=== PATIENT | female | born 1950 | race American Indian/Alaskan Native ===

== ENCOUNTER 2017-06-28 13:08 | Inpatient (IN) | payer MEDICARE ==
--- NOTE | 2017-06-28 14:00 | ED PDOC ---
Arrival/HPI - General Chief Complaint: Medical Clearance Time Seen by Provider: 06/28/17 13:12 Historian: Patient - History of Present Illness Narrative History of Present Illness (Text): 06/28/17 14:03 A 66 year old female, whose past medical history includes AICD placement (2013) , was brought in by EMS for pacemaker malfunction since this morning. Patient notes three episodes of pacemaker firing off within the last couple of hours. Patient denies any chest pain, shortness of breath, palpitations or any other complaints at this time. Insurance Salesman: Dr. Caruso ([place]) Symptom Onset: Sudden Symptom Course: Unchanged Activities at Onset: Rest Context: Home Past Medical History - Provider Review Nursing Documentation Reviewed: Yes - Infectious Disease Hx of Infectious Diseases: None - Cardiac Hx Hypertension: Yes Other/Comment: EF 20% -- pacemaker - Pulmonary Hx Asthma: Yes - Musculoskeletal/Rheumatological Other/Comment: ankle surgery - Psychiatric Hx Substance Use: No - Surgical History Other/Comment: pacemaker. R ankle sx - Anesthesia Hx Anesthesia: Yes Hx Anesthesia Reactions: No Hx Malignant Hyperthermia: No Family/Social History - Physician Review Nursing Documentation Reviewed: Yes Family/Social History: No Known Family HX Smoking Status: Never Smoked Hx Alcohol Use: Yes Frequency of alcohol use: Socially Hx Substance Use: No Allergies/Home Meds Allergies/Adverse Reactions: Allergies peanut Allergy (Verified 06/28/17 13:31) SHORTNESS OF BREATH Home Medications: Home Meds Medication Instructions Recorded Confirmed Aspirin [Aspirin Chewable] 81 mg PO DAILY 06/28/17 06/30/17 Enalapril Maleate [Vasotec] 20 mg PO BID 06/28/17 06/28/17 Furosemide [Lasix] 20 mg PO BID 06/28/17 06/30/17 Metoprolol 100 mg PO BID 06/28/17 06/30/17 Review of Systems - Physician Review All systems were reviewed & negative as marked: Yes - Review of Systems Respiratory: absent: SOB Cardiovascular: absent: Chest Pain, Palpitations Physical Exam Vital Signs Reviewed: Yes Vital Signs Temp Pulse Resp BP Pulse Ox 06/28/17 21:53 98.5 F 06/28/17 21:00 72 19 133/85 96 06/28/17 19:00 84 18 120/65 97 06/28/17 17:12 83 18 135/86 97 06/28/17 15:53 76 18 147/80 98 06/28/17 13:09 97.7 F 82 18 138/91 H 98 Temperature: Afebrile Blood Pressure: Hypertensive Pulse: Regular Respiratory Rate: Normal Appearance: Positive for: Well-Appearing, Non-Toxic, Comfortable Pain Distress: None Mental Status: Positive for: Alert and Oriented X 3 - Systems Exam Head: Present: Atraumatic, Normocephalic Pupils: Present: PERRL Extroacular Muscles: Present: EOMI Conjunctiva: Present: Normal Mouth: Present: Moist Mucous Membranes Neck: Present: Normal Range of Motion Respiratory/Chest: Present: Clear to Auscultation, Good Air Exchange. No: Respiratory Distress, Accessory Muscle Use Cardiovascular: Present: Regular Rate and Rhythm, Normal S1, S2. No: Murmurs Abdomen: Present: Normal Bowel Sounds. No: Tenderness, Distention, Peritoneal Signs Back: Present: Normal Inspection Upper Extremity: Present: Normal Inspection. No: Cyanosis, Edema Lower Extremity: Present: Normal Inspection. No: Edema Neurological: Present: GCS=15, CN II-XII Intact, Speech Normal Skin: Present: Warm, Dry, Normal Color. No: Rashes Psychiatric: Present: Alert, Oriented x 3, Normal Insight, Normal Concentration Medical Decision Making ED Course and Treatment: 06/28/17 14:00 EKG: Ordered, reviewed, and independently interpreted the EKG. Rate : 105 BPM Rhythm : Sinus tachycardic Interpretation : Left bundle branch block Comparison : No previous EKG for comparison. 06/28/17 14:04 chest xray: No acute findings, interpreted by me. [facility] to interrogate the device and sent images to the pts call box wirer Dr Caruso. I spoke w Dr Caruso who says the discharges were caused by runs of monomorphic VT and rec loading the pt w amio- bolus 150mg then 1mg/ min over 6 hours then 0.5mg/min over [address] Varner who will admit. - Lab Interpretations Lab Results: 06/28/17 13:40 06/28/17 13:40 Lab Results 06/28/17 13:40: Hemoglobin A1c 5.8 06/28/17 13:40: Triglycerides 76, Cholesterol 212 H, LDL Cholesterol Direct 135 H, HDL Cholesterol 47 06/28/17 13:40: TSH 3rd Generation 0.22 L 06/28/17 13:40: Sodium 141, Potassium 3.9, Chloride 100, Carbon Dioxide 28, Anion Gap 17, BUN 12, Creatinine 0.6, Est GFR ( Amer) > 60, Est GFR (Non- Af Amer) > 60, Random Glucose 125 H, Calcium 9.7, Total Bilirubin 0.6, AST 35, ALT 24, Alkaline Phosphatase 85, Troponin I 0.02, Total Protein 8.2, Albumin 4.4 , Globulin 3.8, Albumin/Globulin Ratio 1.2 06/28/17 13:40: WBC 7.9, RBC 4.07, Hgb 12.3, Hct 36.5, MCV 89.7, MCH 30.2, MCHC 33.7, RDW 13.6, Plt Count 258, MPV 9.5, Gran % 55.0, Lymph % (Auto) 37.5 H, [place] % (Auto) 3.3, Eos % (Auto) 3.7, Baso % (Auto) 0.5, Gran # 4.35, Lymph # 3.0 , [place] # 0.3, Eos # 0.3, Baso # 0.04 I have reviewed the lab results: Yes - RAD Interpretation Radiology Orders: 06/28/17 13:32 CHEST PORTABLE [RAD] Stat - EKG Interpretation Interpreted by ED Physician: Yes Type: 12 lead EKG - Medication Orders Current Medication Orders: Discontinued Medications Amiodarone HCl (Cordarone) 400 mg PO TID [facility] Stop: 07/01/17 23:59 Last Admin: 06/30/17 09:18 Dose: 400 mg Amiodarone HCl (Cordarone) 200 mg PO DAILY [facility] Aspirin (Aspirin Chewable) 81 mg PO DAILY [facility] Last Admin: 06/30/17 09:19 Dose: 81 mg Atorvastatin Calcium (Lipitor) 20 mg PO DIN [facility] Last Admin: 06/29/17 17:43 Dose: 20 mg Furosemide (Lasix) 20 mg PO BID [facility] Last Admin: 06/30/17 09:18 Dose: 20 mg Amiodarone HCl/Dextrose (Nexterone 360 Mg In D5w 200 Ml (Premix)) 360 mg in 200 mls @ 33.333 mls/hr IV .Q6H MAKI; 1 MG/MIN PRN Reason: Protocol Last Admin: 08/07/17 20:07 Dose: 33.333 mls/hr Amiodarone HCl/Dextrose (Nexterone 150 Mg In Dextrose 100 Ml (Premix)) 150 mg in 100 mls @ 600 mls/hr IVPB ONCE ONE PRN Reason: Protocol Stop: 06/28/17 17:25 Last Admin: 06/28/17 18:58 Dose: 600 mls/hr Amiodarone HCl/Dextrose (Nexterone 360 Mg In D5w 200 Ml (Premix)) 360 mg in 200 mls @ 16.667 mls/hr IV .Q12H MAKI; 0.5 MG/MIN PRN Reason: Protocol Stop: 06/29/17 14:00 Last Admin: 06/29/17 01:13 Dose: 16.667 mls/hr Ibuprofen (Motrin Tab) 600 mg PO Q6H PRN PRN Reason: Pain, moderate (4-7) Last Admin: 06/30/17 00:39 Dose: 600 mg Re-Assess: MAR Pain/Vitals Document 06/30/17 01:39 (Rec: 06/30/17 01:39 [id number] Pain Reassessment Is This A Pain ReAssessment? Yes Sleep Is patient sleeping during reassessment? Yes Levalbuterol HCl (Xopenex) 1.25 mg IH STAT STA Stop: 06/28/17 22:43 Last Admin: 06/29/17 00:30 Dose: 1.25 mg Levalbuterol HCl (Xopenex) 1.25 mg IH [id number] PRN PRN Reason: Shortness of Breath Magnesium Oxide (Mag-Ox) 400 mg PO BID [facility]KI Stop: 06/30/17 23:59 Metoprolol Tartrate (Lopressor) 100 mg PO BID [facility] Last Admin: 06/30/17 09:19 Dose: 100 mg Pantoprazole Sodium (Protonix Ec Tab) 40 mg PO ACB [facility]KI Last Admin: 06/30/17 08:02 Dose: 40 mg Potassium Chloride (K-Dur 20 Meq Er Tab) 20 meq PO DAILY [facility]KI Potassium Chloride (K-Dur 20 Meq Er Tab) 40 meq PO DAILY [facility] Last Admin: 06/30/17 09:18 Dose: 40 meq - Scribe Statement The provider has reviewed the documentation as recorded by the Sarai Guillen Provider Scribe Attestation: All medical record entries made by the Scribe were at my direction and personally dictated by me. I have reviewed the chart and agree that the record accurately reflects my personal performance of the history, physical exam, medical decision making, and the department course for this patient. I have also personally directed, reviewed, and agree with the discharge instructions and disposition. Disposition/Present on Arrival - Present on Arrival Any Indicators Present on Arrival: No History of DVT/PE: No History of Uncontrolled Diabetes: No Urinary Catheter: No History of Decub. Ulcer: No History Surgical Site Infection Following: None - Disposition Have Diagnosis and Disposition been Completed?: Yes Diagnosis: AICD discharge, Ventricular tachycardia Disposition: HOSPITALIZED Disposition Time: 17:09 Condition: STABLE
[2017-06-28 14:04] LABS: BASO # 0.04 K/mm3 (0.0-2.0); BASO % 0.5 % (0.0-3.0); EOS # 0.3 (0.0-0.7); EOS % 3.7 % (1.5-5.0); GRAN # 4.35 (1.4-6.5); HEMOGLOBIN 12.3 g/dL (12.0-16.0); LYMPH % 37.5 % (22.0-35.0); MEAN CELL VOLUME 89.7 fl (80.0-105.0); MEAN CORPUSCULAR HEMOGLOBIN 30.2 pg (25.0-35.0); MEAN CORPUSCULAR HGB CONC 33.7 g/dl (31.0-37.0); MEAN PLATELET VOLUME 9.5 fl (7.0-11.0); MONO # 0.3 (0.1-0.6); MONO % 3.3 % (1.0-6.0); PLATELET COUNT 258 10^3/uL (120.0-450.0); RBC 4.07 10^6/uL (3.5-6.1); RED CELL DISTRIBUTION WIDTH 13.6 % (11.5-14.5); WHITE BLOOD COUNT 7.9 10^3/ul (4.5-11.0)
[2017-06-28 14:11] LABS: ALB/GLOB RATIO 1.2 (1.1-1.8); ALBUMIN 4.4 g/dL (3.0-4.8); ALT/SGPT 24 U/L (7-56); AST/SGOT 35 U/L (15-39); BLOOD UREA NITROGEN 12 mg/dL (7-21); CALCIUM 9.7 mg/dL (8.4-10.5); GFR AFRICAN-AMERICAN > 60; GFR NON-AFRICAN AMERICAN > 60
[2017-06-28 14:22] LABS: TROPONIN I 0.02 ng/mL
--- NOTE | 2017-06-28 14:28 | RAD ---
HISTORY: aicd fired COMPARISON: No prior. FINDINGS: LUNGS: No active pulmonary disease. PLEURA: No significant pleural effusion identified, no pneumothorax apparent. CARDIOVASCULAR: Normal. OSSEOUS STRUCTURES: No significant abnormalities. VISUALIZED UPPER ABDOMEN: Normal. OTHER FINDINGS: Pacemaker/defibrillator present IMPRESSION: No active disease.
[2017-06-28] MEDS ORDERED: Amiodarone 360 mg/D5W 200 ml 360 MG/200 ML BAG IV SCH ×2 (17:15→23:30)
[2017-06-28] MEDS ORDERED: Amiodarone 150 mg/D5W 100 ml 150 MG/100 ML BAG IVPB ONE (17:16)
[2017-06-28] MEDS ORDERED: Levalbuterol 1.25 MG/3 ML Inhal Soln UD IH PRN (22:42)
[2017-06-28] MEDS ORDERED: Levalbuterol 1.25 MG/3 ML Inhal Soln UD IH STA (22:42)
--- NOTE | 2017-06-28 22:46 | CP.PCM.CON ---
<Emmie Gómez - Last Filed: 06/29/17 00:02> History of Present Illness - History of Present Illness History of Present Illness: This is a 66Y F with PMH asthma, HTN, cardiomyopathy with ICD in place who came to the ED because her ICD went off. She reports this morning she was looking out the window when all of a sudden her ICD shocked her. She was not stressed or symptomatic prior to the event. The shocks happened about 3 times and were an hour apart. In the ED, pt had ICD interrogated which showed V.tach. She was transferred to ICU for amiodarone drip. She denies CP, SOB, n/v/d, numbness/ tingling, headache, vision changes, fever or chills. PMH: asthma, HTN, cardiomyopathy with ICD PSH: ICD placement Home meds: Please refer to MAR All: Peanut SH: Denies EtOH, Tobacco or drug use. Lives with family FH: Denies Automotive Welder: Dr. Caruso Review of Systems - Constitutional Constitutional: absent: Chills, Fever - EENT Eyes: absent: Change in Vision Ears: absent: Dizziness Nose/Mouth/Throat: absent: Dysphagia - Cardiovascular Cardiovascular: absent: Chest Pain, Dyspnea, Edema, Syncope - Respiratory Respiratory: absent: Cough, Dyspnea, Wheezing - Gastrointestinal Gastrointestinal: absent: Belching, Change in Bowel Habits, Diarrhea, Nausea, Vomiting - Genitourinary Genitourinary: absent: Dysuria, Hematuria, Pyuria - Musculoskeletal Musculoskeletal: absent: Arthralgias, Myalgias - Neurological Neurological: absent: Dizziness, Numbness, Syncope, Tingling, Tremor, Vertigo, Weakness - Psychiatric Psychiatric: absent: Anxiety, Depression Past Patient History - Infectious Disease Hx of Infectious Diseases: None - Past Social History Smoking Status: Never Smoked - CARDIAC Hx Hypertension: Yes Other/Comment: EF 20% -- pacemaker - PULMONARY Hx Asthma: Yes - MUSCULOSKELETAL/RHEUMATOLOGICAL Other/Comment: ankle surgery - PSYCHIATRIC Hx Substance Use: No - SURGICAL HISTORY Other/Comment: pacemaker. R ankle sx - ANESTHESIA Hx Anesthesia: Yes Hx Anesthesia Reactions: No Hx Malignant Hyperthermia: No Meds Allergies/Adverse Reactions: Allergies Allergy/AdvReac Type Severity Reaction Status Date / Time peanut Allergy SHORTNESS Verified 06/28/17 13:31 OF BREATH - Medications Medications: Current Medications Amiodarone HCl/Dextrose (Nexterone 360 Mg In D5w 200 Ml (Premix)) 360 mg in 200 mls @ 33.333 mls/hr IV .Q6H MAKI; 1 MG/MIN PRN Reason: Protocol Last Admin: 06/28/17 20:07 Dose: 33.333 mls/hr Amiodarone HCl/Dextrose (Nexterone 360 Mg In D5w 200 Ml (Premix)) 360 mg in 200 mls @ 16.667 mls/hr IV .Q12H MAKI; 0.5 MG/MIN PRN Reason: Protocol Pantoprazole Sodium (Protonix Ec Tab) 40 mg PO ACB MAKI Physical Exam - Constitutional Appears: No Acute Distress - Head Exam Head Exam: ATRAUMATIC, NORMAL INSPECTION, NORMOCEPHALIC - Eye Exam Eye Exam: Normal appearance, PERRL Pupil Exam: NORMAL ACCOMODATION, PERRL - ENT Exam ENT Exam: Mucous Membranes Moist - Neck Exam Neck exam: Positive for: Normal Inspection - Respiratory Exam Respiratory Exam: Wheezes, NORMAL BREATHING PATTERN. absent: Rales, Rhonchi - Cardiovascular Exam Cardiovascular Exam: REGULAR RHYTHM, +S1, +S2. absent: Gallop, Rubs, Systolic Murmur - GI/Abdominal Exam GI & Abdominal Exam: Normal Bowel Sounds, Soft. absent: Rebound, Rigid, Tenderness - Extremities Exam Extremities exam: Positive for: normal inspection. Negative for: calf tenderness, pedal edema - Neurological Exam Neurological exam: Alert, CN II-XII Intact, Oriented x3 - Psychiatric Exam Psychiatric exam: Normal Affect, Normal Mood Results - Vital Signs Recent Vital Signs: Last Vital Signs Temp 97.7 F 06/28/17 13:09 Pulse 72 06/28/17 21:00 Resp 19 06/28/17 21:00 BP 133/85 06/28/17 21:00 Pulse Ox 96 06/28/17 21:00 - Labs Result Diagrams: 06/28/17 13:40 06/28/17 13:40 Assessment & Plan - Assessment and Plan (Free Text) Assessment: This is a 66Y F with PMH asthma, HTN, cardiomyopathy with ICD in place who came to the ED because her ICD went off 3 times secondary to V.tach. She was placed in ICU for amiodarone drip. Plan: Neuro: A&O x 3 CV: Trend troponin r/o reversible causes of vtach- check TSH, HgbA1c, Lipid panel Continue Home meds: ASA, Lasix, K-dur, Metoprolol Amiodarone drip EKG in AM Will consult cardioiologist Pulm: Xopenex once- wheezing resolved Xopenex prn Maintain spO2>90% Aspiration precaution GI: HHD Protonix Nephro: Will monitor kidney function and electrolytes Will replace electrolytes as needed Heme: Hgb Stable Will continue to monitor ID: No signs of infection at this time Endo: Will check HgbA1c, TSH Maintain euglycemia GI ppx: Protonix DVT ppx: SCDs Case seen, discussed and reviewed with attending Taya Gómez PGY2 - Date & Time Date: 06/29/17 Time: 00:16 <Tommy Zheng - Last Filed: 06/29/17 22:00> Meds - Medications Medications: Current Medications Aspirin (Aspirin Chewable) 81 mg PO DAILY MAKI Furosemide (Lasix) 20 mg PO BID MAKI Amiodarone HCl/Dextrose (Nexterone 360 Mg In D5w 200 Ml (Premix)) 360 mg in 200 mls @ 33.333 mls/hr IV .Q6H MAKI; 1 MG/MIN PRN Reason: Protocol Last Admin: 06/28/17 20:07 Dose: 33.333 mls/hr Amiodarone HCl/Dextrose (Nexterone 360 Mg In D5w 200 Ml (Premix)) 360 mg in 200 mls @ 16.667 mls/hr IV .Q12H MAKI; 0.5 MG/MIN PRN Reason: Protocol Last Admin: 06/29/17 01:13 Dose: 16.667 mls/hr Ibuprofen (Motrin Tab) 600 mg PO Q6H PRN PRN Reason: Pain, moderate (4-7) Last Admin: 06/29/17 01:31 Dose: 600 mg Levalbuterol HCl (Xopenex) 1.25 mg IH [id number] PRN PRN Reason: Shortness of Breath Metoprolol Tartrate (Lopressor) 100 mg PO BID [facility] Pantoprazole Sodium (Protonix Ec Tab) 40 mg PO ACB MAKI Potassium Chloride (K-Dur 20 Meq Er Tab) 20 meq PO DAILY [facility]KI Results - Vital Signs Recent Vital Signs: Last Vital Signs Temp 98 F 06/28/17 23:30 Pulse 76 06/29/17 06:20 Resp 19 06/29/17 06:20 BP 139/76 06/29/17 06:00 Pulse Ox 95 06/29/17 01:10 - Labs Result Diagrams: 06/29/17 05:50 06/29/17 05:50 Labs: Laboratory Results - last 24 hr 06/29/17 06/29/17 06/29/17 01:20 01:20 01:20 PT 11.8 INR 1.09 H APTT 27.8 Phosphorus 3.4 Magnesium 1.8 Troponin I 0.11 D Attending/Attestation - Attestation I have personally seen and examined this patient.: Yes I have fully participated in the care of the patient.: Yes I have reviewed all pertinent clinical information: Yes
[2017-06-28 23:57] LABS: HDL CHOLESTEROL 47 mg/dL (29-60); LDL CHOLESTEROL 135 mg/dL (0-129)
[2017-06-29 00:19] VITALS: BMI 33.7
[2017-06-29 01:44] LABS: INR 1.09 (0.93-1.08); PARTIAL THROMBOPLASTIN TIME 27.8 Seconds (23.7-30.8); PROTHROMBIN TIME 11.8 Seconds (9.9-11.8)
[2017-06-29 02:42] LABS: MAGNESIUM 1.8 mg/dL (1.7-2.2)
[2017-06-29 07:09] LABS: BASO # 0.03 K/mm3 (0.0-2.0); BASO % 0.4 % (0.0-3.0); EOS # 0.2 (0.0-0.7); GRAN # 3.56 (1.4-6.5); GRAN % 43.9 % (50.0-68.0); HEMOGLOBIN 11.6 g/dL (12.0-16.0); LYMPH # 3.9 (1.2-3.4); LYMPH % 48.5 % (22.0-35.0); MEAN CELL VOLUME 89.3 fl (80.0-105.0); MEAN CORPUSCULAR HEMOGLOBIN 29.7 pg (25.0-35.0); MEAN CORPUSCULAR HGB CONC 33.2 g/dl (31.0-37.0); MEAN PLATELET VOLUME 9.4 fl (7.0-11.0); MONO # 0.3 (0.1-0.6); MONO % 4.2 % (1.0-6.0); PLATELET COUNT 243 10^3/uL (120.0-450.0); RBC 3.91 10^6/uL (3.5-6.1); RED CELL DISTRIBUTION WIDTH 13.8 % (11.5-14.5); WHITE BLOOD COUNT 8.1 10^3/ul (4.5-11.0)
[2017-06-29 07:20] LABS: ALB/GLOB RATIO 1.1 (1.1-1.8); ALBUMIN 3.8 g/dL (3.0-4.8); ALT/SGPT 23 U/L (7-56); AST/SGOT 38 U/L (15-39); BLOOD UREA NITROGEN 10 mg/dL (7-21); CALCIUM 9.2 mg/dL (8.4-10.5); GFR AFRICAN-AMERICAN > 60; GFR NON-AFRICAN AMERICAN > 60
[2017-06-29 07:29] LABS: TROPONIN I 0.07 ng/mL
[2017-06-29] MEDS: Pantoprazole 40 mg EC Tab PO SCH (08:11)
[2017-06-29] MEDS: Potassium Chloride 20 mEq ER Tab PO SCH (09:25)
--- NOTE | 2017-06-29 09:27 | CP.PCM.HP ---
History of Present Illness - History of Present Illness History of Present Illness: CC: AICD firing X3 History of present Illness: A 66 year old female with past medical history CMY S/P AICD placement (2013), HTN and Asthma was brought in by EMS for ICD firing x3 yesterday morning. Patient admits having chest pressure prior to presentation. Denies Associated shortness of breath, palpitations, diaphoresis or lightheadedness. As per the Record, ICD interrogation showed a Monomorphic VT of 240BPM and patient was started on Amiodarone infusion after 150mg IV bolus. Currently denies any complaint. Present on Admission - Present on Admission Any Indicators Present on Admission: Yes History of DVT/PE: No History of Uncontrolled Diabetes: No Urinary Catheter: No Decubitus Ulcer Present: No Review of Systems - Review of Systems All systems: reviewed and no additional remarkable complaints except - Cardiovascular Cardiovascular: As Per HPI Past Patient History - Infectious Disease Hx of Infectious Diseases: None - Past Medical History & Family History Past Medical History?: Yes Past Family History: Reviewed and not pertinent - Past Social History Smoking Status: Never Smoked Alcohol: None Drugs: Denies - CARDIAC Hx Cardiac Disorders: Yes Hx Hypertension: Yes Hx Internal Defibrillator: Yes Other/Comment: EF 20% -- pacemaker - PULMONARY Hx Asthma: Yes - MUSCULOSKELETAL/RHEUMATOLOGICAL Other/Comment: ankle surgery - PSYCHIATRIC Hx Substance Use: No - SURGICAL HISTORY Other/Comment: pacemaker. R ankle sx - ANESTHESIA Hx Anesthesia: Yes Hx Anesthesia Reactions: No Hx Malignant Hyperthermia: No Meds Allergies/Adverse Reactions: Allergies Allergy/AdvReac Type Severity Reaction Status Date / Time peanut Allergy SHORTNESS Verified 06/28/17 13:31 OF BREATH Physical Exam - Constitutional Appears: Well, No Acute Distress - Head Exam Head Exam: ATRAUMATIC, NORMAL INSPECTION, NORMOCEPHALIC - Eye Exam Eye Exam: EOMI, Normal appearance, PERRL Pupil Exam: NORMAL ACCOMODATION, PERRL - ENT Exam ENT Exam: Mucous Membranes Moist, Normal Exam - Neck Exam Neck exam: Positive for: Normal Inspection - Respiratory Exam Respiratory Exam: Chest Wall Tenderness, Clear to Auscultation Bilateral, NORMAL BREATHING PATTERN. absent: Accessory Muscle Use Additional comments: Left sided chest ICD with no signs of infection. - Cardiovascular Exam Cardiovascular Exam: REGULAR RHYTHM, +S1, +S2 Additional comments: Left chest ICD in palce - GI/Abdominal Exam GI & Abdominal Exam: Normal Bowel Sounds, Soft. absent: Tenderness - Extremities Exam Extremities exam: Positive for: full ROM, normal inspection - Back Exam Back exam: CVA tenderness (R), NORMAL INSPECTION. absent: CVA tenderness (L) - Neurological Exam Neurological exam: Alert, CN II-XII Intact, Normal Gait, Oriented x3, Reflexes Normal - Psychiatric Exam Psychiatric exam: Normal Affect, Normal Mood - Skin Skin Exam: Dry, Intact, Normal Color, Warm Results - Vital Signs Recent Vital Signs: Last Vital Signs Temp 98 F 06/28/17 23:30 Pulse 74 06/29/17 07:00 Resp 19 06/29/17 06:20 BP 139/76 06/29/17 06:00 Pulse Ox 95 06/29/17 01:10 - Labs Result Diagrams: 06/29/17 05:50 06/29/17 05:50 Labs: Laboratory Results - last 24 hr 06/29/17 06/29/17 06/29/17 01:20 01:20 01:20 WBC RBC Hgb Hct MCV MCH MCHC RDW Plt Count MPV Gran % Lymph % (Auto) [place] % (Auto) Eos % (Auto) Baso % (Auto) Gran # Lymph # [place] # Eos # Baso # PT 11.8 INR 1.09 H APTT 27.8 Sodium Potassium Chloride Carbon Dioxide Anion Gap BUN Creatinine Est GFR ( Amer) Est GFR (Non-Af Amer) Random Glucose Calcium Phosphorus 3.4 Magnesium 1.8 Total Bilirubin AST ALT Alkaline Phosphatase Troponin I 0.11 D Total Protein Albumin Globulin Albumin/Globulin Ratio 06/29/17 06/29/17 05:50 05:50 WBC 8.1 RBC 3.91 Hgb 11.6 L Hct 34.9 L MCV 89.3 MCH 29.7 MCHC 33.2 RDW 13.8 Plt Count 243 MPV 9.4 Gran % 43.9 L Lymph % (Auto) 48.5 H [place] % (Auto) 4.2 Eos % (Auto) 3.0 Baso % (Auto) 0.4 Gran # 3.56 Lymph # 3.9 H [place] # 0.3 Eos # 0.2 Baso # 0.03 PT INR APTT Sodium 139 Potassium 3.5 L Chloride 101 Carbon Dioxide 29 Anion Gap 13 BUN 10 Creatinine 0.6 Est GFR ( Amer) > 60 Est GFR (Non-Af Amer) > 60 Random Glucose 86 Calcium 9.2 Phosphorus Magnesium Total Bilirubin 0.4 AST 38 ALT 23 Alkaline Phosphatase 81 Troponin I 0.07 D Total Protein 7.3 Albumin 3.8 Globulin 3.5 Albumin/Globulin Ratio 1.1 - EKG Data Rate: Tachycardia - EKG Data EKG comments: LBBB. - Imaging and Cardiology Chest x-ray Status: Report reviewed by me Additional comment: IMPRESSION: No active disease. ICD on the left chest Assessment & Plan (1) AICD discharge Assessment and Plan: AICD Interrogated and Monomorphic VT about 240BPM On Amiodarone Infusion LowTSH Thyroid Profile Trop Trending down after spike, and most likely from the shocks ASA/Atorvastatin Handstitching Machine Collar Feller onboard 2D Echo Continue to Monitor in CCU Discuss with her primary Handstitching Machine Collar Feller about POC. Status: Acute (2) Essential hypertension Assessment and Plan: Resume Metoprolol Status: Chronic (3) Asthma Assessment and Plan: Continue Xopenx Status: Chronic (4) Low TSH level Assessment and Plan: Thyroid Panel We may look alternative to Amiodarone if Thyroid Panel is abnormal Status: Acute
[2017-06-29] MEDS ORDERED: Potassium Chloride 20 mEq ER Tab PO SCH (10:00)
[2017-06-29 11:49] LABS: FREE T4 1.24 ng/dL (0.78-2.19)
--- NOTE | 2017-06-29 19:37 | CARD ---
APPROVED REPORT EKG Measurement Heart [id number] <Conclusion> DDD pacemaker rhythm
--- NOTE | 2017-06-29 23:58 | CARD ---
APPROVED REPORT EKG Measurement Heart [id number] <Conclusion> Sinus tachycardia Left bundle branch block Abnormal ECG
--- NOTE | 2017-06-30 00:29 | CON ---
DATE: 06/29/2017 REASON FOR CONSULTATION: AICD 3 times, monomorphic VT. BRIEF CLINICAL HISTORY: A 66-year-old female with past medical history significant for cardiomyopathy, nonischemic, status post AICD placed on 05/20/[address] Caruso at [facility]; history of cardiac catheterization; prior to that was told normal coronaries, who said she was watching the window, suddenly the defibrillator went off and fired 3 times, so brought here. The patient denies any chest pain, denies any shortness of breath, denies any palpitations, denies any prior episode of firing of defibrillator. PAST MEDICAL HISTORY: Significant for nonischemic cardiomyopathy, hypertension, history of posterior ICD placed on 05/20/2014. SOCIAL HISTORY: Denies smoking, denies any history of alcohol abuse. CURRENT MEDICATIONS: The patient is taking at home; metoprolol 100 mg twice, enalapril 20 mg, potassium chloride 20 mEq, Lasix 20, and aspirin 81 mg daily. REVIEW OF SYSTEMS: As per HPI. ALLERGIES: PEANUTS. PHYSICAL EXAMINATION: VITAL SIGNS: Height of the patient 5 feet 4 inches, weight of the patient of 197 pounds, body mass index 33.8 kg/m2. Temperature afebrile, heart rate 74 and blood pressure 154/93. HEENT: PERRLA, extraocular muscles intact. NECK: Supple. No carotid bruits or thyromegaly. CHEST: Clear to auscultation. HEART: S1 and S2, regular. ABDOMEN: Soft. EXTREMITIES: Clubbing and cyanosis negative. LABORATORY DATA: EKG shows normal sinus, left bundle-branch block. Blood workup as follows; WBC 8.1, hemoglobin 11.6, hematocrit 34.9, platelet count 243. Chemistry shows sodium 139, potassium 3.5, chloride 101, carbon dioxide 29, anion gap 13, BUN 10, creatinine 0.6. Troponin 0.1 and 0.02. Phosphorous 0.02. IMPRESSION: A 66-year-old female with past medical history significant for nonischemic cardiomyopathy, status post automatic implantable cardioverter-defibrillator placed on 05/20/2014, yesterday her defibrillator went off 3 times. Denies any chest pain, shortness of breath prior to that. Defibrillator interrogation shows monomorphic VT, rate of 240 and defibrillator went twice and converted to normal sinus and 59 joules of current was delivered. The patient has a prior cardiac catheterization in 2013 according to the patient with normal coronaries by Dr. Boss. RECOMMENDATIONS: The patient was started loading with IV amiodarone, just to p.o., and if troponin trends down, we will downgrade the patient, but if the troponin trend up, consider cardiac catheterization, but if the troponin trend down, probably we will treat medically. We will get echo to assess LV function. Continue beta howard. Further recommendation per hospital course. We will follow with you. Get the lipid profile, TSH, hemoglobin A1c, supplement potassium and magnesium. Keep the potassium more than 4 and magnesium above 2. We will follow with you. Thank you, Dr. Varner for providing the opportunity in taking care of the patient, June Scott. Jl Duran MD
[2017-06-30 00:52] VITALS: RESP 20; O2SAT 98
[2017-06-30 05:49] LABS: BASO # 0.04 K/mm3 (0.0-2.0); BASO % 0.5 % (0.0-3.0); EOS # 0.3 (0.0-0.7); EOS % 3.3 % (1.5-5.0); GRAN # 3.89 (1.4-6.5); GRAN % 45.4 % (50.0-68.0); HEMOGLOBIN 11.8 g/dL (12.0-16.0); LYMPH % 46.7 % (22.0-35.0); MEAN CELL VOLUME 89.3 fl (80.0-105.0); MEAN CORPUSCULAR HEMOGLOBIN 29.4 pg (25.0-35.0); MEAN PLATELET VOLUME 9.2 fl (7.0-11.0); MONO # 0.4 (0.1-0.6); MONO % 4.1 % (1.0-6.0); PLATELET COUNT 241 10^3/uL (120.0-450.0); RBC 4.01 10^6/uL (3.5-6.1); RED CELL DISTRIBUTION WIDTH 13.7 % (11.5-14.5); WHITE BLOOD COUNT 8.6 10^3/ul (4.5-11.0)
[2017-06-30 06:04] LABS: ALB/GLOB RATIO 1.1 (1.1-1.8); ALBUMIN 3.8 g/dL (3.0-4.8); ALT/SGPT 25 U/L (7-56); AST/SGOT 30 U/L (15-39); BLOOD UREA NITROGEN 12 mg/dL (7-21); CALCIUM 9.4 mg/dL (8.4-10.5); GFR AFRICAN-AMERICAN > 60; GFR NON-AFRICAN AMERICAN > 60; MAGNESIUM 1.8 mg/dL (1.7-2.2)
[2017-06-30] MEDS: Pantoprazole 40 mg EC Tab PO SCH (08:02)
[2017-06-30] MEDS: Potassium Chloride 20 mEq ER Tab PO SCH (09:18)
[2017-06-30] MEDS ORDERED: Magnesium Oxide 400 mg Tab UD PO SCH (10:15)
[2017-06-30 12:30] VITALS: BP 171/86; PULSE 63; TEMP 97.7
--- NOTE | 2017-06-30 16:01 | PN ---
DATE: 06/30/2017 REASON FOR CONSULTATION: AICD fired 3 times, monomorphic VT (AICD went off 3 times). SUBJECTIVE: The patient denies any chest pain, shortness of breath or any palpitation. Denies any firing of the AICD. OBJECTIVE: GENERAL: Lying flat on the bed, wanted to go home today. VITAL SIGNS: Temperature afebrile, heart rate 81 and blood pressure 152/88. HEENT: PERRLA. Extraocular muscles intact. NECK: Supple. No carotid bruits or thyromegaly. CHEST: Clear to auscultation. HEART: S1 and S2, regular. ABDOMEN: Soft. EXTREMITIES: Clubbing and cyanosis negative. LABORATORY DATA: Blood workup as follows: WBC 8.6, hemoglobin 11.8, hematocrit 35.8 and platelet count 241. Chemistry shows sodium 136, potassium 4.3, chloride 99, carbon dioxide 30, anion gap of 11, BUN 12, creatinine 0.7. Total protein 7.3, albumin 3.8, albumin-globulin ratio 1.1. IMPRESSION: A 66-year-old female with nonischemic cardiomyopathy status post cardiac catheterization [place] [address] Boss, history of automatic implantable cardioverter-defibrillator placed on 05/20/[address] Caruso at [facility], admitted after having defibrillator went off for 3 times, found to be monomorphic intervention done, it is automatic implantable cardioverter defibrillator fired 3 times because of monomorphic VT shock delivered, the patient converted to normal sinus. Since the patient remained stable, the patient started an IV amiodarone loaded now, the patient is being in the process of being loaded p.o. PLAN: Continue 400 mg p.o. three times a day till and then on Wednesday start 200 mg p.o. Continue gentle p.o. Lasix. Continue . Continue metoprolol. Possible discharge in a day or two. Echo done reviewed, preliminary, decreased LV function, MR, TR. Upon discharge, the patient will be followed with Dr. Caruso. Dr. Caruso had been informed about the monomorphic VT and shock delivered. TSH was 0.21. We will monitor TSH in 6 weeks the effect of amiodarone. We will give magnesium oxide, keep the magnesium around 2. Thank you Dr. Varner for providing me the opportunity in taking care of June Scott. Jl Duran MD
--- NOTE | 2017-06-30 16:54 | CP.PCM.DIS ---
Provider - Provider Date of Admission: 06/28/17 17:09 Attending physician: Juan Varner MD Primary care physician: Rangel Eaton MD Time Spent in preparation of Discharge (in minutes): 30 Diagnosis - Discharge Diagnosis (1) AICD discharge Status: Acute (2) Essential hypertension Status: Chronic (3) Asthma Status: Chronic (4) Low TSH level Status: Acute Hospital Course - Lab Results Lab Results: Micro Results 06/28/17 23:04 Naris MRSA Culture (Admit) - Final MRSA NOT DETECTED Most Recent Lab Values WBC 8.6 10^3/ul (4.5-11.0) 06/30/17 05:20 RBC 4.01 10^6/uL (3.5-6.1) 06/30/17 05:20 Hgb 11.8 g/dL (12.0-16.0) L 06/30/17 05:20 Hct 35.8 % (36.0-48.0) L 06/30/17 05:20 MCV 89.3 fl (80.0-105.0) 06/30/17 05:20 MCH 29.4 pg (25.0-35.0) 06/30/17 05:20 MCHC 33.0 g/dl (31.0-37.0) 06/30/17 05:20 RDW 13.7 % (11.5-14.5) 06/30/17 05:20 Plt Count 241 10^3/uL (120.0-450.0) 06/30/17 05:20 MPV 9.2 fl (7.0-11.0) 06/30/17 05:20 Gran % 45.4 % (50.0-68.0) L 06/30/17 05:20 Lymph % (Auto) 46.7 % (22.0-35.0) H 06/30/17 05:20 [place] % (Auto) 4.1 % (1.0-6.0) 06/30/17 05:20 Eos % (Auto) 3.3 % (1.5-5.0) 06/30/17 05:20 Baso % (Auto) 0.5 % (0.0-3.0) 06/30/17 05:20 Gran # 3.89 (1.4-6.5) 06/30/17 05:20 Lymph # 4.0 (1.2-3.4) H 06/30/17 05:20 [place] # 0.4 (0.1-0.6) 06/30/17 05:20 Eos # 0.3 (0.0-0.7) 06/30/17 05:20 Baso # 0.04 K/mm3 (0.0-2.0) 06/30/17 05:20 PT 11.8 Seconds (9.9-11.8) 06/29/17 01:20 INR 1.09 (0.93-1.08) H 06/29/17 01:20 APTT 27.8 Seconds (23.7-30.8) 06/29/17 01:20 Sodium 136 mmol/L (132-148) 06/30/17 05:20 Potassium 4.3 mmol/L (3.6-5.0) 06/30/17 05:20 Chloride 99 mmol/L (95-110) 06/30/17 05:20 Carbon Dioxide 30 mmol/L (21-33) 06/30/17 05:20 Anion Gap 11 (10-20) 06/30/17 05:20 BUN 12 mg/dL (7-21) 06/30/17 05:20 Creatinine 0.7 mg/dL (0.5-1.4) 06/30/17 05:20 Est GFR ( Amer) > 60 06/30/17 05:20 Est GFR (Non-Af Amer) > 60 06/30/17 05:20 Random Glucose 82 mg/dL (70-110) 06/30/17 05:20 Hemoglobin A1c 5.8 % (4.2-6.5) 06/28/17 13:40 Calcium 9.4 mg/dL (8.4-10.5) 06/30/17 05:20 Phosphorus 3.8 mg/dL (2.5-4.5) 06/30/17 05:20 Magnesium 1.8 mg/dL (1.7-2.2) 06/30/17 05:20 Total Bilirubin 0.6 mg/dL (0.2-1.3) 06/30/17 05:20 AST 30 U/L (15-39) 06/30/17 05:20 ALT 25 U/L (7-56) 06/30/17 05:20 Alkaline Phosphatase 87 U/L (38-133) 06/30/17 05:20 Troponin I 0.07 ng/mL D 06/29/17 05:50 Total Protein 7.3 g/dL (5.8-8.3) 06/30/17 05:20 Albumin 3.8 g/dL (3.0-4.8) 06/30/17 05:20 Globulin 3.5 gm/dL 06/30/17 05:20 Albumin/Globulin Ratio 1.1 (1.1-1.8) 06/30/17 05:20 Triglycerides 76 mg/dL (35-160) 06/28/17 13:40 Cholesterol 212 mg/dL (130-200) H 06/28/17 13:40 LDL Cholesterol Direct 135 mg/dL (0-129) H 06/28/17 13:40 HDL Cholesterol 47 mg/dL (29-60) 06/28/17 13:40 Free T4 1.24 ng/dL (0.78-2.19) 06/29/17 11:15 TSH 3rd Generation 0.21 mIU/mL (0.46-4.68) L 06/29/17 11:15 - Hospital Course Hospital Course: A 66yoF was hospitalized for Sustained VT after AICD shocked the patient 3 Times , and Interrogation showed V> Tachycardia. Patient was admitted to CCU after the patient was Loaded with Amiodarone and Infused, and started on PO Amiodarone. Patient was discharged after D/W her Superintendent Quarry on Amiodarone 400mg PO daily. Also found Low TSH, and Possible HYyerthyroid. Normal Free T4. Discharge Exam - Head Exam Head Exam: ATRAUMATIC, NORMAL INSPECTION, NORMOCEPHALIC - Eye Exam Eye Exam: EOMI, Normal appearance, PERRL Pupil Exam: NORMAL ACCOMODATION, PERRL - ENT Exam ENT Exam: Mucous Membranes Dry, Mucous Membranes Moist, Normal External Ear Exam , Normal Oropharynx - GI/Abdominal Exam GI & Abdominal Exam: Normal Bowel Sounds - Exam Speculum exam: NORMAL SPECULUM EXAM - Neurological Exam Neurological exam: Alert, CN II-XII Intact, Normal Gait, Oriented x3, Reflexes Normal - Psychiatric Exam Psychiatric exam: Normal Affect, Normal Mood - Skin Skin Exam: Dry, Intact, Normal Color, Warm Discharge Plan - Discharge Medications Prescriptions: Amiodarone HCl [Pacerone] 400 mg PO DAILY #30 tablet - Follow Up Plan Condition: STABLE Disposition: DIS/[facility] Instructions: Supraventricular Tachycardia (DC), Pacemaker (DC), Asthma (DC), Asthma (GEN), Hypertension (DC), Hypertension (GEN) Additional Instructions: Please follow up with and call Dr. Robledo upon discharge at [phone]. You must Not eat or drink anything after midnight tonight. You are scheduled for an EP study July 01, at [facility]. Dr. Duran reccomends taking the Amiodorone 400mg three times a day till and Wednesday start to take the 200 mg. Referrals: Rangel Eaton MD [Primary Care Provider] -
--- NOTE | 2017-06-30 17:11 | CARD ---
APPROVED REPORT EXAM: Two-dimensional and M-mode echocardiogram with Doppler and color Doppler. INDICATION V-FIB/ S/P AICD 2D DIMENSIONS Left Atrium (2D)3.8 (1.6-4.0cm)IVSd1.2 (0.7-1.1cm) LVDd4.1 (3.9-5.9cm)PWd1.2 (0.7-1.1cm) M-Mode DIMENSIONS Aortic Root2.70 (2.2-3.7cm)Aortic Cusp Exc.1.70 (1.5-2.0cm) Aortic Valve AoV Peak Plwfzlmm955.0cm/John Peak GR.7mmHg Mitral Valve MV E Azejmbvt49.1cm/sMV A Ihlpiqwy21.9cm/sE/A ratio0.8 TDI Lateral E' Peak V7.41cm/sMedial E' Peak V6.34cm/sE/Lateral E'9.3 E/Medial E'10.9 Pulmonary Valve PV Peak Jabdhukl44.9cm/sPV Peak Grad.1mmHg Tricuspid Valve TR Peak Rtyewlcp237hs/sRAP [id number] Peak Gr.35mmHg [id number] LEFT VENTRICLE The left ventricle is normal size. There is normal left ventricular wall thickness. The systolic function is mildly impaired.EF-40-45% There is mild to moderate hypokinesis in the apical anterior wall. Transmitral Doppler flow pattern is Grade III-reversible restrictive diastolic dysfunction. No left ventricle thrombus noted on this study. There is no ventricular septal defect visualized. There is no left ventricular aneurysm. There is no mass noted in the left ventricle. RIGHT VENTRICLE The right ventricle is normal size. There is normal right ventricular wall thickness. The right ventricular systolic function is normal. There is a pacemaker lead in the right ventricle. ATRIA The left atrium is borderline dilated. There is a catheter/pacemaker lead seen in the right atrium. The right atrium size is normal. The interatrial septum is intact with no evidence for an atrial septal defect. AORTIC VALVE The aortic valve is calcified but opens well. No aortic regurgitation is present. There is no aortic valvular stenosis. There is no aortic valvular vegetation. MITRAL VALVE The mitral valve is thickened but opens well. Mitral regurgitation is mild to moderate. There is no mitral valve stenosis. There is no evidence of mitral valve prolapse. TRICUSPID VALVE The tricuspid valve leaflets are thickened , but open well. There is mild to moderate tricuspid regurgitation.RVSP-45 mmof hg. There is no tricuspid valve stenosis. There is no tricuspid valve prolapse or vegetation. PULMONIC VALVE The pulmonary valve is normal in structure. There is trace pulmonic valvular regurgitation. There is no pulmonic valvular stenosis. GREAT VESSELS The aortic root is normal in size. The ascending aorta is normal in size. The pulmonary artery is normal. The IVC is normal in size and collapses >50% with inspiration. PERICARDIAL EFFUSION There is no pleural effusion. There is no pericardial effusion. <Conclusion> The left ventricle is normal size. There is normal left ventricular wall thickness. The systolic function is mildly impaired.EF-40-45% No aortic regurgitation is present. Mitral regurgitation is mild to moderate. There is mild to moderate tricuspid regurgitation.RVSP-45 mmof hg. The IVC is normal in size and collapses >50% with inspiration. There is no pericardial effusion. No thrombus or vegetation noted. There is a pacemaker lead in the right ventricle.
== END 2017-06-30 12:44 | disposition home or self-care (01) | DRG 309 ==
LOC: ED 13:08 → ERH 17:09 → OBSVTOIN 17:09 → ERH 21:13 → CCU 22:13 → 2RNO 06-29 21:52
PROVIDERS: ADMIT Internal Medicine; ATTEND Internal Medicine
PROC: 4B02XTZ Measurement of Cardiac Defibrillator, External Approach (ICD-10-PCS; principal; 2017-06-28)
PROC: 3E0F7GC Introduction of Other Therapeutic Substance into Respiratory Tract, Via Natural or Artificial Opening (ICD-10-PCS; 2017-06-29)
DX: I47.2 Ventricular tachycardia (principal); T82.198A Other mechanical complication of other cardiac electronic device, initial encounter; I42.9 Cardiomyopathy, unspecified; I10 Essential (primary) hypertension; J45.909 Unspecified asthma, uncomplicated; Y71.2 Prosthetic and other implants, materials and accessory cardiovascular devices associated with adverse incidents